=== PATIENT | female | born 1975 | race Caucasian/White ===

== ENCOUNTER 2020-01-09 11:28 | Inpatient (IN) | payer BC ==
[~2020-01-09] VITALS: Ht 160 cm; Wt 118.8 kg
[2020-01-09 11:40] VITALS: BP 115/70
[2020-01-09 12:42] LABS: ABSOLUTE NEUTROPHILS 7.4 thou/uL (1.4-8.2); BASOPHILS 0.2 % (0.0-2.0); HEMATOCRIT 40.4 % (37.0-47.0); HEMOGLOBIN 13.5 gm/dL (12.0-15.0); LYMPHOCYTES 5.7 % (24.0-44.0); MCH 28.3 pg (26.0-34.0); MCHC 33.4 g/dL (28.0-37.0); MCV 84.8 fL (80.0-100.0); MONOCYTES 3.1 % (1.0-8.0); PLATELET COUNT 285 thou/uL (150-400); RBC 4.77 mil/uL (4.20-5.00); WBC 8.1 thou/uL (4.0-11.0)
[2020-01-09 12:58] LABS: CALCIUM 8.5 mg/dL (8.5-10.1); CREATININE 1.1 mg/dL (0.6-1.0); POTASSIUM 3.9 mmol/L (3.5-5.1)
[2020-01-09 13:05] LABS: ALBUMIN 3.2 g/dL (3.4-5.0); TOTAL BILIRUBIN 0.4 mg/dL (0.2-1.0); TOTAL PROTEIN 7.5 g/dL (6.4-8.2)
[2020-01-09] MEDS ORDERED: LAMICTAL150 MG PO (13:48)
[2020-01-09] MEDS ORDERED: ARIPIPRAZOLE OD10 MG PO (13:49)
[2020-01-09] MEDS ORDERED: SUBVENITE150 MG PO (13:49)
[2020-01-09] MEDS ORDERED: PROTONIX40 M2 PO (13:49)
[2020-01-09] MEDS ORDERED: SINGULAIR 10 MG10 MG PO (13:50)
[2020-01-09] MEDS ORDERED: BREO ELLIPTA 11 EACH INH (13:51)
[2020-01-09] MEDS ORDERED: PROAIR HFA8.5 GM INH (13:51)
[2020-01-09] MEDS ORDERED: PREDNISONE 5 MG5 MG PO (13:52)
[2020-01-09 14:46] VITALS: BP 103/55
[2020-01-09 14:53] VITALS: BP 103/55
--- NOTE | 2020-01-09 15:56 | NUR ---
ATTEMPTED TO CALL REPORT TO 3W. NURSE CURRENTLY WITH PT AND WILL CALL BACK
[2020-01-09 16:46] VITALS: BP 103/55
[2020-01-09] MEDS ORDERED: FLEXERIL PO (17:46)
[2020-01-09] MEDS ORDERED: MELATONIN5 M5 PO (17:47)
--- NOTE | 2020-01-09 18:44 | NUR ---
ASSUMED CARE APPROX 1650. PT ADMITTED TO THIS UNIT FROM ER. PT ALERT AND ORIENTED X 4. ASSESSMENT CHARTED AND VSS. PT DENIES PAIN, BUT DOES REPORT CHEST DISCOMFORT FROM COUGHING. PT'S SPOUSE BROUGHT HOME MEDICATIONS FOR PT. MEDICATIONS HAVE BEEN TURNED IN TO PHARMACY. PT ON 4LNC W/O DISTRESS NOTED. PT NOT MONITORED. PT WOULD LIKE HOME MEDS RESUMED. DR. SPAIN NOTIFIED. PT RESTING IN BED. WILL CONINUE TO MONITOR.
[2020-01-09 19:50] VITALS: BP 111/53
[2020-01-10] VITALS (9 sets, daily range): BP systolic 109–137; BP diastolic 53–79
[2020-01-10 03:36] LABS: ALBUMIN 2.7 g/dL (3.4-5.0); CREATININE 0.8 mg/dL (0.6-1.0); POTASSIUM 3.9 mmol/L (3.5-5.1); TOTAL BILIRUBIN 0.2 mg/dL (0.2-1.0); TOTAL PROTEIN 6.9 g/dL (6.4-8.2)
[2020-01-10 03:57] LABS: ABSOLUTE NEUTROPHILS 2.9 thou/uL (1.4-8.2); BASOPHILS 0.4 % (0.0-2.0); EOSINOPHILS 0.1 % (0.0-3.0); HEMOGLOBIN 12.7 gm/dL (12.0-15.0); LYMPHOCYTES 15.7 % (24.0-44.0); MCH 28.2 pg (26.0-34.0); MCHC 32.5 g/dL (28.0-37.0); MCV 86.7 fL (80.0-100.0); MONOCYTES 4.6 % (1.0-8.0); PLATELET COUNT 301 thou/uL (150-400); POLYS 79.2 % (36.0-66.0); WBC 3.7 thou/uL (4.0-11.0)
[2020-01-10 04:16] LABS: PROTIME 10.7 Seconds (9.3-11.4)
[2020-01-10 04:21] LABS: FIBRINOGEN 510.8 mg/dL (210-360)
--- NOTE | 2020-01-10 10:31 | NUR ---
CM COMPLETED INITIAL ASSESSMENT TO [facility] D/C PLANNING. PT IS A&OX4. PT LIVES AT HOME WITH SPOUSE. DESCRIBES HER SUPPORT SYSTEM , "VERY SUPPORTIVE." PT DENIES HX W/SNF OR HH. PT HAS 0 DMES. PT ACTIVE AND INDEPENDENT. EMPLOYEED. DRIVES A VEHICLE. PT GOAL IS TO RTRN HOME AT D/C. CM TO CONT TO FOLLOW.
--- NOTE | 2020-01-10 11:15 | NUR ---
Nutrition: Assessing due to 2 point risk on admit for reported 2-13# of wt loss and decreased appetite. Pt is COVID-19+, pneumonia. No other significant PMH. As pt in enhanced isolation, attempted to phone room for interview. Pt did not answer. Chart reviewed. No weight hx data available dating back 4 years review. CBW 245# places BMI in morbid obese category at 43.4 kg/m2. She follows a low Na diet at home per nutrition screen. Although low appetite reported, pt already ate 100% of first meal on unit last night at dinner. Suspect appetite likely low temporarily related to acuity of illness. She is receiving IVFs. EMR does note hyperglycemia on admit with BG of 200 mg/dl, but pt reports just eating. A1c is pending. Deemed as low nutrition risk for now, will follow for any nutritional decline.
--- NOTE | 2020-01-10 16:08 | NUR ---
ASSUMED CARE OF PT AT SHIFT CHANGE. ASSESSMENT CHARTED. MEDS GIVEN PER JUL. PT A&OX4, ON 4L NC, SOA WITH ACTIVITY, NO DISTRESS DURING SHIFT. CONVALESCENT PLASMA TRANSFUSION COMPLETE WITH NO REACTIONS OR COMPLICATIONS. PT CONTINUES WITH IV ABX AND STEROIDS. WILL CONTINUE TO MONITOR.
[2020-01-11 03:31] VITALS: BP 129/74
[2020-01-11 09:15] VITALS: BP 136/68
--- NOTE | 2020-01-11 13:30 | NUR ---
SW reviewed chart and spoke with nursing and attending physician. Pt is in Enhanced Isolation due to COVID-19. Pt is afebrile and requiring 4L of O2. Pt is on IV abx and IV steroids. Pt has convelescent plasma on 01/09 and is completing course of Remdesivir. Plan is for pt to discharge home when medically stable. SUSANNE is following to assist as needed with discharge planning.
--- NOTE | 2020-01-11 14:40 | NUR ---
ASSUMED CARE APPROX 0700. PT ALERT AND ORIENTED X4. ASSESSMENT CHARTED AND VSS. PT AFEBRILE THIS SHIFT. ON 4LNC W/O DISTRESS NOTED. PT NOT MONITORED. HEART SOUNDS REGULAR. PT'S BLOOD SUGARS HAVE BEEN ELEVATED. DISCUSSED W/ DR. PADILLA AT BEDSIDE. ORDERS FOR LOW SSI. PT REPORTS IMPROVEMENT IN BREATHING. PT DENIES ACUTE PAIN. PT SLOWLY PROGRESSING TOWARDS PLAN OF CARE GOALS. WILL CONTINUE TO MONITOR.
[2020-01-11 15:52] VITALS: BP 111/54
[2020-01-11 19:47] VITALS: BP 108/60
[2020-01-12 02:01] VITALS: BP 108/60
[2020-01-12 02:02] VITALS: BP 108/60
[2020-01-12 04:34] VITALS: BP 106/56
[2020-01-12 06:16] LABS: ALBUMIN 2.6 g/dL (3.4-5.0); DIRECT BILIRUBIN < 0.1 mg/dL (<0.1-0.2); SGOT 20 U/L (15-37); SGPT 39 U/L (30-65); TOTAL BILIRUBIN 0.2 mg/dL (0.2-1.0); TOTAL PROTEIN 6.4 g/dL (6.4-8.2)
--- NOTE | 2020-01-12 06:45 | NUR ---
FOLLOWING POC WITH REMDESIVIR GIVEN 2nd DOSE. VSS, AND PT CURRENTLY STILL ON 4L VIA NC. PT HAS EXTENSION TUBING ALLOWING PT ABLE TO REACH BATHROOM ON 02. PT STATES SHE IS STILL GETTING SOA GOING TO BATHROOM. PT ALSO STATES SHE IS PHYSICALLY FEELING BETTER.
[2020-01-12 07:36] VITALS: BP 125/62
[2020-01-12 07:36] LABS: URINE BILIRUBIN NEGATIVE (Negative); URINE BLOOD NEGATIVE (Negative); URINE CLARITY CLEAR; URINE COLOR YELLOW; URINE GLUCOSE-RANDOM* NEGATIVE (Negative); URINE KETONES NEGATIVE (Negative); URINE LEUKOCYTES NEGATIVE (Negative); URINE NITRITE NEGATIVE (Negative); URINE PROTEIN (DIPSTICK) NEGATIVE (Negative); URINE UROBILINOGEN 0.2 E.U./dl (0.2-1.0)
--- NOTE | 2020-01-12 14:18 | NUR ---
SUSANNE reviewed chart and spoke with nursing and attending physician. Pt remains in Enhanced Isolation due to COVID-19. Pt is afebrile and still requiring O2. Pt is on IV abx and IV steroids. Pt is completing course of Remdesivir. Pt may be ready for discharge home over the weekend. SUSANNE spoke with pt via phone to discuss discharge plan. Pt is hoping to not need home O2, but is agreeable if needed. SUSANNE provided options for [employer]. No preference voiced. SUSANNE faxed face sheet to [facility] for review. Notified [facility] liaison of new referral and to check insurance. Pt will need a rest/exercise oximetry completed prior to discharge to determine home O2 needs. H&P, Rest/exercise oximetry and script will need to be faxed to [facility] when available. [facility] will deliver a portable tank to the hospital if needed. No additional discharge needs identified at this time. SUSANNE is following and is available to assist as needed with discharge planning. [facility] [place]--
--- NOTE | 2020-01-12 14:40 | NUR ---
ASSUMED CARE APPROX 0700. PT ALERT AND ORIENTED X4. ASSESSMENT CHARTED AND VSS. PT AFEBRILE THIS SHIFT. ON 3LNC AND TOLERATING WELL. SOB W/ AMBULATION BUT RECOVERS QUICKLY. NO SIGNS OF DISTRESS NOTED. PT DENIES ACUTE PAIN. PT DENIES CHEST PAIN. PT RESPIRATORY STATUS IS IMPROVING AND PT REPORTS THIS WELL. PT PROGRESSING TOWARDS PLAN OF CARE GOALS. WILL CONTINUE TO MONITOR.
[2020-01-12 15:45] VITALS: BP 122/63
[2020-01-12 21:39] VITALS: BP 137/64
[2020-01-13 06:11] VITALS: BP 127/70
--- NOTE | 2020-01-13 07:20 | NUR ---
continues on 2.0 liter 98% oxygen level. denies pain. using the cough medicine it is effective for cough control. careplan reviewed.
[2020-01-13 07:21] VITALS: BP 129/72
[2020-01-13 11:24] LABS: HEMATOCRIT 40.6 % (37.0-47.0); HEMOGLOBIN 13.3 gm/dL (12.0-15.0); MCH 28.1 pg (26.0-34.0); MCHC 32.7 g/dL (28.0-37.0); MCV 86.1 fL (80.0-100.0); RBC 4.72 mil/uL (4.20-5.00); RDW 15.3 % (10.5-14.5)
[2020-01-13 11:29] LABS: CALCIUM 8.3 mg/dL (8.5-10.1); CREATININE 0.8 mg/dL (0.6-1.0); MAGNESIUM 2.4 mg/dL (1.8-2.4); POTASSIUM 4.4 mmol/L (3.5-5.1)
[2020-01-13 15:29] VITALS: BP 129/74
--- NOTE | 2020-01-13 18:37 | NUR ---
ASSUMED CARE OF PT AT 0700. PT AOX4 PLEASANT IN NO ACUTE DISTRESS. UP AD FRANCHESCA. REMAINS SOA W/ ACTIVITY WHCIH SHE REPORTS HAS BEEN GOING ON FOR MONTHS. VITALS STABLE. 4TH DOSE REMDESIVIR DUE LATER TONIGHT. POSSIBLE D/C TOMORROW.
[2020-01-13 18:49] VITALS: BP 118/64
[2020-01-14 04:58] VITALS: BP 119/66
[2020-01-14 07:52] VITALS: BP 131/64
[2020-01-14 15:37] VITALS: BP 125/76
[2020-01-14] MEDS ORDERED: ZINC SULFATE 2220 MG PO (15:47)
[2020-01-14] MEDS ORDERED: GLUCOPHAGE500 MG PO (15:47)
[2020-01-14] MEDS ORDERED: PREDNISONE 10 M10 MG PO (15:48)
[2020-01-14] MEDS ORDERED: VITAMIN D325 MC1 PO (15:48)
[2020-01-14] MEDS ORDERED: VITAMINC500 PO (15:48)
[2020-01-14 16:26] VITALS: BP 125/76
[2020-01-14 16:27] VITALS: BP 125/76
--- NOTE | 2020-01-16 14:43 | NUR ---
SW received call from Keren at [facility] stating that they did not receive the testing or script for home O2. Pt discharged home on 01/13 and needs 2L of O2 with activity. [facility] was able to get pt set up over the weekend. SW faxed rest/exercise oximetry and signed script to [facility]. Updated Keren. No additional SW needs identified. Case closed.
== END 2020-01-14 18:24 | disposition home or self-care (01) | DRG 177 ==
LOC: ER 11:28 → 3W 15:04 → EROBS 15:04 → 3W 17:00
PROVIDERS: Internal Medicine; Nurse Practitioner; Nurse Practitioner Family; Specialist; ADMIT Hospitalist; ATTEND Hospitalist
PROC: XW033E5 Introduction of Remdesivir Anti-infective into Peripheral Vein, Percutaneous Approach, New Technology Group 5 (ICD-10-PCS; principal; 2020-01-10)
PROC: XW13325 Transfusion of Convalescent Plasma (Nonautologous) into Peripheral Vein, Percutaneous Approach, New Technology Group 5 (ICD-10-PCS; principal; 2020-01-10)
DX: U07.1 COVID-19 (principal); J12.89 Other viral pneumonia; J96.01 Acute respiratory failure with hypoxia; E11.65 Type 2 diabetes mellitus with hyperglycemia; E55.9 Vitamin D deficiency, unspecified; Z79.899 Other long term (current) drug therapy
CPT/HCPCS: 10080